=== PATIENT | female | born 1995 | race Caucasian/White ===

== ENCOUNTER 2017-06-27 22:06 | Inpatient (IN) | payer OTHER ==
[2017-06-27 22:45] LABS: BASOPHILS 0.3 % (0-2); EOSINOPHILS 7.1 % (0-7); HEMATOCRIT 36.1 % (36.0-48.0); HEMOGLOBIN 12.2 g/dL (12-16); IMMATURE GRANULOCYTES 0.3 % (0-5); LYMPHOCYTES 9.2 % (15-50); MCH 30.7 pg (26.0-34.0); MCHC 33.8 g/dL (31.0-37.0); MCV 90.9 fL (80.0-100.0); MEAN PLATELET VOLUME 10.1 fL (7.4-10.4); MONOCYTES 5.4 % (2-11); NEUTROPHILS 77.7 % (40-80); PLATELET COUNT 136 10x3/uL (130-400); RBC 3.97 10x6/uL (4.00-5.40); RDW 12.3 % (11.5-14.5)
[2017-06-27 22:46] LABS: HCG URINE NEGATIVE (NEGATIVE)
[2017-06-27 23:01] LABS: INR 1.11 (0.85-1.17); PROTIME 14.1 SECONDS (11.6-15.0)
[2017-06-27 23:02] LABS: APPEARANCE CLEAR (CLEAR); BILIRUBIN NEGATIVE (NEGATIVE); COLOR YELLOW (YELLOW); GLUCOSE NEGATIVE (NEGATIVE); KETONE SMALL mg/dL (NEGATIVE); NITRITE NEGATIVE (NEGATIVE); PROTEIN NEGATIVE (NEGATIVE); UROBILINOGEN NORMAL (NORMAL)
[2017-06-27 23:07] LABS: ALBUMIN 3.7 g/dL (3.4-5.0); ALKALINE PHOSPHATASE 49 U/L (46-116); ALT (SGPT) 46 U/L (10-68); BILIRUBIN - TOTAL 0.16 mg/dL (0.2-1.3); CALC OSMOLALITY 267 mosm/kg (275-300); CALCIUM 8.9 mg/dL (8.5-10.1); CARBON DIOXIDE 24.1 mmol/L (21.0-32.0); CHLORIDE - SERUM 102 mmol/L (98-107); CREATININE - SERUM 0.8 mg/dL (0.6-1.3); GLUCOSE 97 mg/dL (74-106); PROTEIN - SERUM 7.5 g/dL (6.4-8.2); SODIUM 134 mmol/L (136-145); UREA NITROGEN 13 mg/dL (7-18); eGFR NON AFRICAN AMERICAN > 90 mL/min (90-120)
[2017-06-27 23:09] LABS: CREATINE KINASE 80 UL (21-215)
[2017-06-27 23:10] LABS: TROPONIN-I < 0.017 ng/mL (0.000-0.060)
[2017-06-28] VITALS (7 sets, daily range): BP systolic 94–116; BP diastolic 53–80; BMI 20.9
[2017-06-28 00:02] LABS: C-REACTIVE PROTEIN 8.7 mg/dL (0.0-0.9); THYROID STIMULATING HORMONE 0.31 uIU/mL (0.36-3.74)
[2017-06-28] MEDS ORDERED: BACTRIM DS TABL1 TAB PO (02:21)
[2017-06-28] MEDS ORDERED: NAPROSYN500 MG PO (02:22)
[2017-06-28] MEDS ORDERED: ORTHO TRI-7 DAYSX 3 PO (02:23)
--- NOTE | 2017-06-28 02:57 | NUR ---
PT ARRIVED VIA W/C FROM ER AT 0154 HRS. NO DISTRESS NOTED. ST PER CM HR 102. IV TO RAC WITH NS AT 125CC/HR. IV PATENT. PT PLACED IN ILOLATION DUE TO FLU SWABS. ADMISSION ASSESSMENT, HISTORY AND HOME MED LIST COMPLETED. PRESCRIBED MEDS REVIEWED. MOTHER AT BEDSIDE. SR UP X2, CALL LIGHT WITHIN REACH.
--- NOTE | 2017-06-28 05:23 | NUR ---
PT AWAKE; DENIES ANY NEEDS AT THIS TIME.
--- NOTE | 2017-06-28 05:51 | NUR ---
PT RESTING WITH EYES CLOSED. RESP EVEN AND REGULAR. SR UP X2, CALL LIGHT WITHIN REACH AND MOTHER AT BEDSIDE.
--- NOTE | 2017-06-28 07:27 | NUR ---
AM ROUNDS - PT IN BED AT APPEARS TO BE SLEEPING AT THIS TIME. MONITOR SHOWING SR, HR 84. PT IS UP AD RAND. IV TO RIGHT AC, NS AT 125. MOM AT BEDSIDE. BED AT LOWEST POSITION. CALL JULIO IN USE/REACH. SIDE RAILS UP X2. WILL CONTINUE TO MONITOR
--- NOTE | 2017-06-28 13:26 | NUR ---
PT IN BED WITH MONTHER AT BEDSIDE. PT C/O PAIN TO CHEST, MEDS GIVEN. NO NEEDS AT [facility]. WILL CONTINUE TO MONITOR
[2017-06-28 13:58] LABS: ERYTHROCYTE SEDIMENTATION RATE 13 mm/hr (0-20)
--- NOTE | 2017-06-28 14:07 | NUR ---
PT'S MOM DISCONNECTED THE IV FLUIDS FROM THE IV AND TRIED TO RECONNECT IT. EXPLAINED TO MOM AND PT TO PLEASE ASK FOR ASSISTANCE AND ALLOW STAFF TO MANAGE MEDICAL EQUIPMENT. WILL CONTINUE TO MONITOR
--- NOTE | 2017-06-28 17:58 | HP ---
PATIENT: LASHAWN WILLIS MEDICAL RECORD: [id number] ACCOUNT: [id number] LOCATION:[address] : 95 ADMISSION DATE: 06/28/17 HISTORY AND PHYSICAL EXAMINATION HISTORY OF PRESENT ILLNESS: Ms. Willis is a 21-year-old white female, patient of ____ had [facility] that has had any 4-week history of chest pain and has been seen on multiple occasions and has been seen at the Emergency Room, has [facility] on a couple occasions, has been seen at several walking on occasions. Pain is constant, but worse when she takes a deep breath, worse when she leans forward, no association with eating, it is worse with exertion. She started having fever 3 days ago. She is on control pills. CTA in the Emergency Room was negative. She states she has been losing weight. She denies any adenopathy. She denies any real GI symptoms. She denies any HIV or other infectious history of significance. She denies any known tick bites. Does state she has spider bite behind the knee few weeks ago, but that has healed up fine. She has had some short course of prednisone, has had some Toradol shots, has been given tramadol and nothing seems to help. LABORATORY DATA: Showed a mildly low TSH. She has a mild leukopenia and mild thrombocytopenia. Her sed rate is 8.9. Urine is clean except for a small amount of ketones. Her CBC shows low lymphs and high eosinophils at 7.1, which is only mildly ____. Her liver function tests are normal. Cardiac enzymes are normal. Her flu A and B were both negative. Her test is negative. PAST MEDICAL HISTORY: Unremarkable. PREVIOUS SURGERIES: None. ALLERGIES: None. MEDICATIONS: The only medications are; she is on some Bactrim and Naprosyn right now. She has been on her regular Ortho Tri-Cyclen. FAMILY HISTORY: Significant for cardiovascular disease. SOCIAL HISTORY: Does not smoke, does not drink. Alcohol on a social basis. Denies any recreational drug use. REVIEW OF SYSTEMS: Fever for 3 days. Chest pain for 4 weeks with associated shortness of breath. No nausea, vomiting. No rashes. No lymph nodes. She has had some weight loss. PHYSICAL EXAMINATION: HEENT: Head is normocephalic. Oral cavity is okay. NECK: Soft and supple, no adenopathy. HEART: Regular. LUNGS: Clear. ABDOMEN: Soft. LOWER EXTREMITIES: No edema. NEUROLOGIC: Without any gross focal deficits. Mood is "okay." IMPRESSION: 1. Chest pain times 4 weeks. Negative CTA. 2. Fever the last 3 days, some weight loss leuco and thrombocytopenia. HISTORY AND PHYSICAL [id number] LASHAWN WILLIS PLAN: Check an echo to rule out pericarditis. Get tick titers. Check sed rate, JOSY, RA. Toradol times 4 doses. Consider ID consult pending results of above. TRANSINT:[id number] Voice Confirmation ID: [id number] DOCUMENT ID: [id number] JOSE CAPONE DO at 1758 CC: [id number] DICTATION DATE: 06/28/17 1211 HEAD CHEF: 06/28/[address] [facility] [address] [id number]
--- NOTE | 2017-06-28 19:15 | NUR ---
ROUNDING NOTE: AT THE CHANGE OF SHIFT, PT IS SITTING UP IN BED WITH MOM AT THE BEDSIDE VISITING. PT IS SINUS RHYTHM ON THE MONITOR, RATE= 81. PT HAS NS RUNNING AT 125CC/HR TO RIGHT AC. PT CONTINUES TO C/O CHEST PAIN 02/06. SHE STATES THAT THE TORADOL IS NOT REALLY HELPING VERY MUCH. I TOLD HER THAT SHE CAN ALSO GET DILAUDID, BUT SHE DOESN'T WANT TO TAKE THAT YET. HER NEXT DOSE OF DILAUDID IS DUE AT 2014, SO SHE WANTS TO SEE HOW THAT GOES. PT IS ON DROPLET PRECAUTIONS. WILL CONT TO MONITOR.
--- NOTE | 2017-06-28 22:00 | NUR ---
PT STATES THAT THE TORADOL ONLY HELPED HER A TINY BIT, BUT SHE STILL DOESN'T WANT TO TAKE THE DILAUDID. PT STATES THAT SHE WILL TELL ME IF THE PAIN GETS WORSE. WILL CONT TO MONITOR.
[2017-06-29] VITALS: BP 86/44
[2017-06-29 04:00] VITALS: BP 84/50
--- NOTE | 2017-06-29 05:23 | NUR ---
PT HAS CONTINUED TO HAVE CONSTANT CP THROUGHOUT THE NIGHT. SHE HAS RECEIVED HER SCHEDULED TORADOL [id number] AND 2 DOSES OF PRN DILAUDID TO HELP HER SLEEP. PT STATES THAT THE TORADOL DOESN'T SEEM TO HELP HER AT ALL. THE DILAUDID HELPS A BIT MORE, BUT IT JUST KNOCKS HER OUT. PT HAS BEEN ABLE TO GET SOME SLEEP WITH THE DILAUDID. WILL CONT TO MONITOR.
[2017-06-29 05:59] LABS: BASOPHILS 0.5 % (0-2); EOSINOPHILS 6.5 % (0-7); HEMATOCRIT 34.2 % (36.0-48.0); HEMOGLOBIN 11.1 g/dL (12-16); LYMPHOCYTES 34.5 % (15-50); MCH 30.2 pg (26.0-34.0); MCHC 32.5 g/dL (31.0-37.0); MEAN PLATELET VOLUME 10.7 fL (7.4-10.4); NEUTROPHILS 51.5 % (40-80); PLATELET COUNT 132 10x3/uL (130-400); RBC 3.67 10x6/uL (4.00-5.40); RDW 12.8 % (11.5-14.5)
[2017-06-29 06:12] LABS: MCV 93.2 fL (80.0-100.0); WBC 3.8 10x3/uL (4.8-10.8)
[2017-06-29 06:22] LABS: ALBUMIN 2.8 g/dL (3.4-5.0); ALKALINE PHOSPHATASE 42 U/L (46-116); ALT (SGPT) 43 U/L (10-68); CALCIUM 8.3 mg/dL (8.5-10.1); CARBON DIOXIDE 23.6 mmol/L (21.0-32.0); CHLORIDE - SERUM 107 mmol/L (98-107); CREATININE - SERUM 0.6 mg/dL (0.6-1.3); GLUCOSE 89 mg/dL (74-106); POTASSIUM - SERUM 4.1 mmol/L (3.5-5.1); PROTEIN - SERUM 6.2 g/dL (6.4-8.2); SODIUM 140 mmol/L (136-145); eGFR NON AFRICAN AMERICAN > 90 mL/min (90-120)
[2017-06-29 06:23] LABS: BILIRUBIN - TOTAL 0.08 mg/dL (0.2-1.3); CALC OSMOLALITY 275 mosm/kg (275-300); UREA NITROGEN 7 mg/dL (7-18)
[2017-06-29 08:19] LABS: T3 - FREE 2.2 pg/mL (2.0-4.4)
[2017-06-29 08:35] VITALS: BP 84/48
--- NOTE | 2017-06-29 09:11 | NUR ---
PT IN BED, WITH EYES CLOSED, AROUSES EASILY TO VOICE. RESP EVEN AND UNLABORED. PT DENIES ANY NEEDS AT THIS TIME. MOTHER AT BEDSIDE, CALL LIGHT IN REACH, NAD NOTED, WILL CONTINUE TO MONITOR.
[2017-06-29 10:18] LABS: ANA REFLEX - DIRECT Negative (Negative)
[2017-06-29 11:16] LABS: HEPATITIS C ANTIBODY 0.2 (0.0-0.9)
[2017-06-29 12:02] VITALS: BP 112/71
--- NOTE | 2017-06-29 14:58 | NUR ---
ADMINISTERED 0.5MG OF DILAUDID FOR PAIN LEVEL OF 8/10. PT IN BED, HAVING CONVERSATION WITH COMPANY. PT DENIES ANY OTHER NEEDS AT THIS TIME. CALL LIGHT IN REACH, NAD NOTED, WILL CONTINUE TO MONITOR.
[2017-06-29] MEDS ORDERED: DOXYCYCLINE HY100 M2 PO (16:11)
[2017-06-29] MEDS ORDERED: PREDNISONE10 MG PO (16:33)
--- NOTE | 2017-06-29 16:42 | EC ---
PATIENT:LASHAWN MARTÍNEZ DATE OF SERVICE: 06/28/17 SEX: F MEDICAL RECORD: [id number] DATE OF : [birth year] LOCATION:D.M2 D.210 AGE OF PATIENT: 21 ADMISSION DATE: 06/28/17 REFERRING PHYSICIAN: INTERPRETING PHYSICIAN: FUNMILAYO NDIAYE MD ECHOCARDIOGRAM REPORT ECHO CHARGES 4 ECHO COMPLETE CLINICAL DIAGNOSIS: CP/FEVER ECHOCARDIOGRAPHIC MEASUREMENTS (adult normal given) AC root (d.<3.7cm) 2.3 cm LV Septum d (<1.2 cm> 0.9 cm Valve Excursion 1.6 cm LV Septum (systole) 1.4 cm Left Atria (s.<4.0cm> 2.2 cm LVPW d(<1.2cm) 0.8 cm RV (d.<2.3cm) cm LVPW (sytole) 1.4 cm LV diastole(<5.6CM) 3.9 cm MV E-F(>70mm/sec) cm LV systole 2.0 cm LVOT Diameter 1.4 cm MV exc.(>10mm) cm Est.ejection fraction (50-75%) % Pericardial Effusion N DOPPLER: LVIT cm/sec A 59.0 cm/sec E 86.0 cm/sec LA cm/sec RVSP 26.0 mmHg LVOT 93.0 cm/sec AOP1/2T m/s Asc. Ao 115 cm/sec RVOT 83.0 cm/sec RA cm/sec PA 88.0 cm/sec AV Gradient Peak 5.3 mmHg AV Mean 2.3 mmHg AV Area 1.1 cm MV Gradient Peak 3.6 mmHg MV Mean 1.4 mmHg MV Area cm COMMENTS: Government Minister: Anthony GODFREYOE Judge'S Clerk: Magen Hartley TAPE# PACS DATE OF SERVICE: 06/28/2017 Echocardiogram FINDINGS: 1. Left ventricular chamber size is within normal limits. Left ventricular systolic function is normal. Overall ejection fraction estimated at 55%. 2. Left atrium, right atrium, and right ventricle chamber sizes are within normal limits. 3. Valvular structures have normal structure and motion. ECHOCARDIOGRAM REPORT [id number] LASHAWN MARTÍNEZ 4. Doppler interrogation only reveals trace mitral regurgitation, trace tricuspid regurgitation, neither of which are hemodynamically significant and pulmonary systolic pressure is normal estimated at 26 mmHg. 5. No evidence of pericardial effusion or left ventricular thrombus. TRANSINT:[id number] Voice Confirmation ID: [id number] DOCUMENT ID: [id number] FUNMILAYO NDIAYE MD at 1642 CC: [id number] DICTATION DATE: 06/29/17 103 INPATIENT PHARMACIST: 06/29/17 1101 ADM IN [facility] [address] [place] [address]
--- NOTE | 2017-06-29 17:52 | NUR ---
PROVIDED VERBAL AND WRITTEN DISCHARGE TEACHING TO PT. PT VERBALIZED UNDERSTANDING REGARDING TEACHING. D/C RT AC IV, TIP INTACT. REMOVED HEART MONITOR AND TOOK IT TO [facility]. PT WAITING FOR RIDE, WILL NOTIFY NURSE OR LOADING UNIT OPERATOR SEATING WHEN RIDE IS HERE. PT DENIES ANY NEEDS AT THIS TIME. CALL LIGHT IN REACH, NAD NOTED, WILL CONTINUE TO MONITOR.
[2017-06-29 18:09] LABS: EBV - EARLY ANTIGEN AB IGG <9.0 U/mL (0.0-8.9)
--- NOTE | 2017-06-29 18:15 | NUR ---
PT LEFT UNIT VIA WHEELCHAIR, ACCOMPANIED BY FATHER AND FRIEND, NAD NOTED.
--- NOTE | 2017-06-30 09:53 | DS ---
PATIENT:LASHAWN MARTÍNEZ :89 MEDICAL RECORD: [id number] DISCHARGE SUMMARY ADMISSION DATE: 06/28/17 DISCHARGE DATE: 06/29/17 DATE OF ADMISSION: 06/28/2017 DATE OF DISCHARGE: 06/29/2017 ADMITTING DIAGNOSES: 1. Chest pain. 2. Fever for 24 hours. DISCHARGE DIAGNOSES: 1. Chest wall pain. 2. Fever, resolved. 3. Mild thrombocytopenia and leukopenia. 4. Mildly abnormal TSH. BRIEF HISTORY AND HOSPITAL COURSE: This is a 21-year-old white female that presents to the Emergency Room with a 4-week history of chest pain. She has been seen on multiple occasions in the Emergency Room at [facility] and at [facility], at her physician, Dr. Ge at [facility]. She has been treated with some NSAIDs and some steroids. The pain is worse when she takes a deep breath and worse when she leans forward. No association with eating. It is worse with exertion. She started having fever 3 days ago. She is on control pills. A CTA was performed in the Emergency Room, which was negative for pulmonary embolism. She is losing weight a little bit. She denies any adenopathy. She denies any real GI symptoms. No HIV risk factors. No recent tick bites. She had a spider bite behind the left knee a few weeks ago, but that has healed up. On her labs, she had mild depression of her TSH with normal free T3 and T4. Her white count is 3.8, H&H is 11.1 and 32.4, and platelets are 132 with slight predominance of eosinophils. Sed rate was normal at 13. INR was 1.11. Electrolytes were all normal. Liver function tests were normal. Urine showed small amount of ketones. Rheumatoid factor was negative. JOSY is still pending. Tick titers are still pending. Hepatitis panel was negative. CRP was little high at 8.7. On physical exam, she is exquisitely tender in the anterior chest wall and some in the back. There is no rash seen. Her EKG is normal without signs of pericarditis. An echo was performed, which revealed no evidence of any pleural or pericardial effusion or thrombus. She was given 4 doses of Toradol, which did not make any difference with her pain really, which is still present at the time of discharge. We are going to go ahead and treat her empirically with some doxycycline 100 mg b.i.d. until her tick titers come back. She was also placed on a 12-day prednisone taper. She is instructed to follow up with Dr. Ge, her primary care physician, in 10 days and will need to follow up on tick titers and JOSY. Clinically, she has a pretty severe costochondritis. Her workup has otherwise been negative. TRANSINT:[id number] Voice Confirmation ID: [id number] DOCUMENT ID: [id number] DISCHARGE SUMMARY REPORT [id number] LASHAWN MARTÍNEZ MATTHEW DO at 0953 CC: [id number] DICTATION DATE: 06/29/171726 DIE FINISHER: 06/29/171954 DIS IN 06/29/17 [address] [place] [address]
[2017-06-30 14:30] LABS: EHRLICHIA CHAFF IGG Negative (Neg:<1:64); EHRLICHIA CHAFF IGM Negative (Neg:<1:20); HGE IGG TITER Negative (Neg:<1:64); HGE IGM TITER Negative (Neg:<1:20)
[2017-06-30 22:08] LABS: RMSF IGM 0.88 index (0.00-0.89)
[2017-07-01 12:16] LABS: F. TULARENSIS - IGG Negative (()); F. TULARENSIS - IGM Negative (())
== END 2017-06-29 18:16 | disposition home or self-care (01) | DRG 206 ==
LOC: D.ER 22:06 → EDSEX 22:06 → OBSVTIME 06-28 01:20 → D.M2 06-28 01:20
PROVIDERS: Family Medicine; Nurse Practitioner Family; ADMIT Family Medicine
DX: M94.0 Chondrocostal junction syndrome [Tietze] (principal); R50.9 Fever, unspecified; D72.819 Decreased white blood cell count, unspecified; I08.1 Rheumatic disorders of both mitral and tricuspid valves; D69.6 Thrombocytopenia, unspecified

== ENCOUNTER 2017-07-09 00:11 | Inpatient (IN) | payer OTHER ==
[~2017-07-09] VITALS: Ht 157.5 cm; Wt 52.2 kg
[~2017-07-09 00:11] MED LIST: BACTRIM DS TABL1 TAB PO; DOXYCYCLINE HY100 M2 PO; NAPROSYN500 MG PO; ORTHO TRI-7 DAYSX 3 PO; PREDNISONE10 MG PO
[2017-07-09 00:41] LABS: BASOPHILS 0.1 % (0-2); EOSINOPHILS 0.2 % (0-7); HEMATOCRIT 42.3 % (36.0-48.0); HEMOGLOBIN 14.1 g/dL (12-16); IMMATURE GRANULOCYTES 0.5 % (0-5); MCH 30.3 pg (26.0-34.0); MCHC 33.3 g/dL (31.0-37.0); MCV 90.8 fL (80.0-100.0); MEAN PLATELET VOLUME 9.4 fL (7.4-10.4); NEUTROPHILS 92.2 % (40-80); RBC 4.66 10x6/uL (4.00-5.40); RDW 12.5 % (11.5-14.5); WBC 18.1 10x3/uL (4.8-10.8)
[2017-07-09 00:46] LABS: PLATELET COUNT 379 10x3/uL (130-400)
[2017-07-09 00:59] LABS: ANION GAP 12.6 mmol/L (8-16); BILIRUBIN - TOTAL 0.43 mg/dL (0.2-1.3); CALCIUM 9.5 mg/dL (8.5-10.1); CREATININE - SERUM 1.5 mg/dL (0.6-1.3); POTASSIUM - SERUM 3.6 mmol/L (3.5-5.1); PROTEIN - SERUM 7.9 g/dL (6.4-8.2)
[2017-07-09 01:08] LABS: T4 THYROXIN - FREE 1.51 ng/dL (0.76-1.46); T4 THYROXINE 17.6 ug/dL (4.7-13.3)
[2017-07-09 01:24] LABS: APPEARANCE CLOUDY (CLEAR); COLOR DK YELLOW (YELLOW)
[2017-07-09 01:25] LABS: BACTERIA MANY /hpf (NONE SEEN); BILIRUBIN 1+ (NEGATIVE); GLUCOSE NEGATIVE (NEGATIVE); KETONE NEGATIVE (NEGATIVE); NITRITE NEGATIVE (NEGATIVE); PROTEIN 1+ mg/dL (NEGATIVE); RED CELLS - URINE 0-5 /hpf (0-5); UROBILINOGEN NORMAL (NORMAL); WHITE CELLS - URINE >50 /hpf (0-5)
--- NOTE | 2017-07-09 03:20 | NUR ---
PT ARRIVED VIA WHEELCHAIR FROM ER WITH ER NURSE AND PT'S MOTHER AT HER SIDE. ORIENTED TO ROOM AND CALL LIGHT. WILL MONITOR FOR NEEDS.
[2017-07-09] MEDS ORDERED: BACTRIM DS TABL1 TAB PO (03:24)
[2017-07-09] MEDS ORDERED: VISTARIL25 MG PO (03:25)
[2017-07-09 03:26] VITALS: BP 94/47; BMI 21.0
--- NOTE | 2017-07-09 03:40 | NUR ---
ADMISSION ASSESSMENT AND HISTORY COMPLETE PER FLOWSHEET.
[2017-07-09 04:00] VITALS: BP 94/47
--- NOTE | 2017-07-09 06:06 | NUR ---
GAVE DILAUDID 1 MG IVP PER PRN ORDER, PER PT REQUEST FOR PAIN AT LEVEL 9/10. WILL MONITOR FOR EFFECTIVENESS. SIDE RAILS UP X2 FOR SAFETY.
--- NOTE | 2017-07-09 07:15 | NUR ---
REPORT RECEIVED FROM CHEF TEACHER NURSE. CALL LIGHT IN REACH.
[2017-07-09 08:23] VITALS: BP 84/41
--- NOTE | 2017-07-09 09:36 | NUR ---
ASSESSMENT COMPLETED. SPOKE WITH DALTON MATA, ABOUT VS. NEW ORDERS OBTAINED AND CARRIED OUT. WILL ALSO INITIATED DILAUDID REGIONAL SALES ASSOCIATE. PHENERGAN ADMINISTERED IM TO LEFT BUTTOCKS FOR C/O NAUSEA. MOTHER IN ROOM. CALL LIGHT IN REACH. WILL CONTINUE WITH PLAN OF CARE.
--- NOTE | 2017-07-09 10:28 | NUR ---
1ST NS BOLUS IS COMPLETED.
[2017-07-09 10:46] VITALS: Ht 157.5 cm; Wt 52.2 kg
--- NOTE | 2017-07-09 11:07 | NUR ---
UPPER LIP IS STARTING TO SWELL, PATIENT'S FACE IS FLUSHED AND SHE IS STARTING TO ITCH. PHENERGAN IS THE ONLY NEW THING SHE HAS TAKEN. SPOKE WITH DALTON MATA. NEW ORDER FOR BENADRYL 25 MG PO WHICH I ADMINISTERED. ALSO STARTED 2NS 1000 CC NS IV BOLUS. DILAUDID BOOKSTORE CLERK INITIATED PER ORDER. MOTHER AT BEDSIDE. CALL LIGHT IN REACH.
--- NOTE | 2017-07-09 12:26 | NUR ---
STILL VERY NAUSEATED. ZOFRAN 4 MG SIVP. 2ND IV BOLUS IS COMPLETED. PASSWORD OBTAINED AND PLACED IN COMPUTER. CALL LIGHT IN REACH. WILL CONTINUE TO MONITOR.
[2017-07-09 12:34] VITALS: BP 90/47
--- NOTE | 2017-07-09 14:10 | NUR ---
RESTING WITH EYES CLOSED. RESP EVEN AND UNLABORED. CALL LIGHT IN REACH.
--- NOTE | 2017-07-09 15:45 | NUR ---
SITTING UP IN BED AT THIS TIME. REPORTS PAIN CONTROL NOT WORKING WELL, PAIN NOT IMPROVED BUT NO WORSE EITHER. WILL MONITOR. WAITING ON CT AT THIS TIME. DENIES NEEDS.
[2017-07-09 16:29] VITALS: BP 102/50
--- NOTE | 2017-07-09 16:43 | NUR ---
C/O ITCHING. PATIENT'S BODY IS FLUSHED ALL OVER AND LIP IS STILL SWOLLEN. UNSURE OF WHICH MED IS CAUSING REACTION. SPOKE WITH DALTON MATA. NEW ORDERS RECEIVED FOR IV BENADRYL, ROCEPHIN 1 GM IVPB, AND 500 CC NS IV BOLUS. ALSO NEW ORDER TO DC LEVAQUIN.
--- NOTE | 2017-07-09 16:52 | NUR ---
DR. SALAMANCA JUST CALLED AND GAVE NEW ORDERS TO DC AUDIT CONSULTANT AND START ON DEMEROL 50 MG Q4 HOURS PRN PAIN. ALSO ORDERED PHENERGAN BUT PATIENT WILL BE UNABLE TO TAKE D/T REACTION EARLIER.
--- NOTE | 2017-07-09 17:33 | NUR ---
NEW ORDERS ADMINISTERED PER MD ORDERS. CALL LIGHT IN REACH. MOTHER AT BEDSIDE.
--- NOTE | 2017-07-09 19:28 | NUR ---
NO CHANGES IN INITIAL ASSESSMENT. CALL LIGHT IN REACH. SCDs TO BLE. WILL CONTINUE WITH PLAN OF CARE.
[2017-07-09 20:00] VITALS: BP 106/49
[2017-07-10] VITALS: BP 105/55
[2017-07-10 04:00] VITALS: BP 89/49
[2017-07-10 05:56] LABS: BASOPHILS 0 % (0-2); HEMATOCRIT 33.7 % (36.0-48.0); IMMATURE GRANULOCYTES 0.1 % (0-5); LYMPHOCYTES 25.3 % (15-50); MCH 30.1 pg (26.0-34.0); MCHC 32.6 g/dL (31.0-37.0); MCV 92.1 fL (80.0-100.0); MEAN PLATELET VOLUME 9.6 fL (7.4-10.4); MONOCYTES 3.8 % (2-11); NEUTROPHILS 66.8 % (40-80); PLATELET COUNT 241 10x3/uL (130-400); RBC 3.66 10x6/uL (4.00-5.40); RDW 12.9 % (11.5-14.5); WBC 7.3 10x3/uL (4.8-10.8)
[2017-07-10 06:17] LABS: ALKALINE PHOSPHATASE 35 U/L (46-116); ALT (SGPT) 23 U/L (10-68); BILIRUBIN - TOTAL 0.25 mg/dL (0.2-1.3); CALCIUM 7.9 mg/dL (8.5-10.1); CHLORIDE - SERUM 107 mmol/L (98-107); GLUCOSE 100 mg/dL (74-106); POTASSIUM - SERUM 3.7 mmol/L (3.5-5.1); SODIUM 139 mmol/L (136-145)
[2017-07-10 06:23] LABS: ALBUMIN 2.5 g/dL (3.4-5.0); CALC OSMOLALITY 274 mosm/kg (275-300); CARBON DIOXIDE 19.7 mmol/L (21.0-32.0); CREATININE - SERUM 0.8 mg/dL (0.6-1.3); PROTEIN - SERUM 5.6 g/dL (6.4-8.2); UREA NITROGEN 5 mg/dL (7-18); eGFR NON AFRICAN AMERICAN > 90 mL/min (90-120)
--- NOTE | 2017-07-10 08:00 | NUR ---
ASSESSMENT PER FLOW SHEET. PT WITHOUT DISTRESS.PT HAS BEEN COMPLAINING OF CONSTANT SHARP CHEST PAIN 5/10 SCALE. ORDERS RECIEVED PER AND INITIATED.
[2017-07-10 08:34] LABS: HCG SERUM NEGATIVE (NEGATIVE)
[2017-07-10 08:40] VITALS: BP 101/50
--- NOTE | 2017-07-10 13:40 | NUR ---
IN AND OUT CATH USING CAFE OR RESTAURANT MANAGER.URINE TO LAB FOR CX ORDERED.
[2017-07-10 15:44] VITALS: BP 105/60
--- NOTE | 2017-07-10 18:10 | NUR ---
REMAINS WITHOUT CHNAGE FROM INITIAL SHIFT ASSESSMENT.CONT PLAN OF CARE
--- NOTE | 2017-07-10 19:45 | NUR ---
PATIENT RESTING IN BED WITH GUEST AT BEDSIDE. ADMINISTERED MEDS PER ORDERS. PT C/O IV BURNING. I ASSESSED AND FLUSHED THE PT'S IV. NO REDNESS/SWELLING NOTED. PT STATED IT "FELT BETTER" AFTER I FLUSHED IT. WILL CONTINUE TO MONITOR. PT DENIES OTHER NEEDS AT THIS TIME. BED IN LOWEST POSITION AND CALL LIGHT WITHIN REACH. ENCOURAGED THE PT TO CALL IF SHE HAS NEEDS.
[2017-07-10 20:00] VITALS: BP 115/70
[2017-07-11] VITALS: BP 103/60
[2017-07-11 04:00] VITALS: BP 93/43
[2017-07-11 05:26] LABS: BASOPHILS 0.1 % (0-2); EOSINOPHILS 3.2 % (0-7); HEMATOCRIT 34.8 % (36.0-48.0); HEMOGLOBIN 11.7 g/dL (12-16); IMMATURE GRANULOCYTES 0.3 % (0-5); MCH 30.3 pg (26.0-34.0); MCHC 33.6 g/dL (31.0-37.0); MCV 90.2 fL (80.0-100.0); MEAN PLATELET VOLUME 9.4 fL (7.4-10.4); MONOCYTES 3.8 % (2-11); NEUTROPHILS 73.6 % (40-80); PLATELET COUNT 219 10x3/uL (130-400); RBC 3.86 10x6/uL (4.00-5.40); RDW 12.6 % (11.5-14.5); WBC 6.9 10x3/uL (4.8-10.8)
[2017-07-11 06:00] LABS: ALBUMIN 2.7 g/dL (3.4-5.0); ALKALINE PHOSPHATASE 36 U/L (46-116); ALT (SGPT) 31 U/L (10-68); BILIRUBIN - TOTAL 0.21 mg/dL (0.2-1.3); CALC OSMOLALITY 275 mosm/kg (275-300); CALCIUM 8.3 mg/dL (8.5-10.1); CHLORIDE - SERUM 106 mmol/L (98-107); CREATININE - SERUM 0.8 mg/dL (0.6-1.3); GLUCOSE 95 mg/dL (74-106); POTASSIUM - SERUM 3.7 mmol/L (3.5-5.1); PROTEIN - SERUM 5.7 g/dL (6.4-8.2); SODIUM 140 mmol/L (136-145); UREA NITROGEN 4 mg/dL (7-18); eGFR NON AFRICAN AMERICAN > 90 mL/min (90-120)
--- NOTE | 2017-07-11 08:00 | NUR ---
ASSESSMENT PER FLOW SHEET.PT WITHOUT DISTRESS.DENIES NEEDS AT PRESENT.CALL LIGHT IN REACH
[2017-07-11 08:33] VITALS: BP 95/55
[2017-07-11] MEDS ORDERED: MEPERIDINE HCL50 MG PO (11:08)
--- NOTE | 2017-07-11 12:17 | NUR ---
IV DCD WITH CATH TIP INTACT.DISCHARGE INSTRUCTIONS,STATES UNDERSTANDING.
--- NOTE | 2017-07-11 12:43 | NUR ---
LEFT UNIT VIA WHEELCHAIR FOR TRANSPORT HOME
--- NOTE | 2017-09-23 10:20 | DS ---
PATIENT:LASHAWN MARTÍNEZ :89 MEDICAL RECORD: [id number] DISCHARGE SUMMARY ADMISSION DATE: 07/09/17 DISCHARGE DATE: 07/11/17 This is a discharge from the inpatient hospital dated 07/11/2017. DISCHARGE DIAGNOSES: 1. Pyelonephritis. 2. Thrombocytopenia. 3. Leukopenia. 4. Hypotension. 5. Fever. 6. Chest pain. HOSPITAL COURSE: Full H&P is located elsewhere on the chart on this 21-year-old female who was admitted for treatment of pyelonephritis. She was started on Levaquin for antibiotic coverage and had a rash developed. Antibiotics were changed to Rocephin. She had a chest x-ray with no acute findings. CT abdomen and pelvis without acute findings. She came in with chest pain, her D-dimer was slightly elevated, so V/Q scan was ordered, it was consistent with low probability for PE. She had blood cultures that were negative. Her urinalysis was consistent with infection, but cultures revealed consistent with a contaminated specimen. Her condition improved and she was considered stable for discharge on 07/11/2017. DISCHARGE MEDICATIONS: As per discharge medication reconciliation. DISCHARGE DISPOSITION: The patient is discharged home. She will continue her current diet and level of activity. She will follow up with primary care in 7-10 days. She will complete 7 days of Bactrim. At least 30 minutes was spent in this discharge activity. TRANSINT:[id number] Voice Confirmation ID: [id number] DOCUMENT ID: [id number] Dictated By: KATERINA ESCAMILLA I have interviewed/examined the above patient and agree with these documented findings. PILI SALAMANCA MD at 1020 at 1023 CC: [id number] DICTATION DATE: 09/19/17 1806 OPAL MINER: 09/20/17 1106 DIS IN 07/11/17 [facility] [address] [place] [address]
== END 2017-07-11 12:44 | disposition home or self-care (01) | DRG 690 ==
LOC: D.ER 00:11 → D.MS 02:31
PROVIDERS: Emergency Medicine; Family Medicine; ADMIT Emergency Medicine
DX: N12 Tubulo-interstitial nephritis, not specified as acute or chronic (principal); R07.9 Chest pain, unspecified; D69.6 Thrombocytopenia, unspecified; R00.0 Tachycardia, unspecified; I95.9 Hypotension, unspecified; L27.0 Generalized skin eruption due to drugs and medicaments taken internally; T36.8X5A Adverse effect of other systemic antibiotics, initial encounter

== ENCOUNTER 2018-06-24 14:58 | Emergency (ER) | payer BC ==
[~2018-06-24] VITALS: Ht 157.5 cm; Wt 52.3 kg
[~2018-06-24 14:58] MED LIST changes: +MEPERIDINE HCL50 MG PO; +VISTARIL25 MG PO
[2018-06-24 15:00] VITALS: Ht 157.5 cm; Wt 52.3 kg
[2018-06-24] MEDS ORDERED: NORCO 7.5/325 T1 TA1 PO (16:23)
[2018-06-24 16:45] VITALS: BP 102/56
== END 2018-06-24 16:45 | disposition home or self-care (01) ==
LOC: D.ER 14:58
DX: S80.02XA Contusion of left knee, initial encounter (principal); V49.9XXA Car occupant (driver) (passenger) injured in unspecified traffic accident, initial encounter; Y93.89 Activity, other specified; Y92.410 Unspecified street and highway as the place of occurrence of the external cause; S93.401A Sprain of unspecified ligament of right ankle, initial encounter

== ENCOUNTER 2020-04-12 11:47 | Emergency (ER) | payer BC ==
[~2020-04-12] VITALS: Ht 157.5 cm; Wt 53.2 kg
[~2020-04-12 11:47] MED LIST changes: +NORCO 7.5/325 T1 TA1 PO
[2020-04-12 12:01] VITALS: Ht 157.5 cm; Wt 53.2 kg
[2020-04-12 12:26] LABS: BASOPHILS 0.3 % (0-2); EOSINOPHILS 1.2 % (0-7); HEMATOCRIT 41.9 % (36.0-48.0); HEMOGLOBIN 13.8 g/dL (12-16); IMMATURE GRANULOCYTES 0.2 % (0-5); LYMPHOCYTES 29.7 % (15-50); MCHC 32.9 g/dL (31.0-37.0); MCV 94.2 fL (80.0-100.0); MEAN PLATELET VOLUME 9.5 fL (7.4-10.4); NEUTROPHILS 60.6 % (40-80); RBC 4.45 10x6/uL (4.00-5.40); RDW 12.2 % (11.5-14.5); WBC 5.7 10x3/uL (4.8-10.8)
[2020-04-12 12:30] LABS: PLATELET COUNT 265 10x3/uL (130-400)
[2020-04-12 12:43] LABS: CALC OSMOLALITY 273 mosm/kg (275-300); CALCIUM 9.9 mg/dL (8.5-10.1); CARBON DIOXIDE 31.3 mmol/L (21.0-32.0); CHLORIDE - SERUM 100 mmol/L (98-107); CREATININE - SERUM 0.9 mg/dL (0.6-1.3); GLUCOSE 115 mg/dL (74-106); SODIUM 136 mmol/L (136-145); UREA NITROGEN 16 mg/dL (7-18); eGFR NON AFRICAN AMERICAN 81 mL/min (90-120)
[2020-04-12 12:49] LABS: HCG SERUM NEGATIVE (NEGATIVE)
[2020-04-12 13:01] LABS: ALBUMIN 4.2 g/dL (3.4-5.0); ALKALINE PHOSPHATASE 64 U/L (30-120); ALT (SGPT) 32 U/L (10-68); BILIRUBIN - TOTAL 0.17 mg/dL (0.2-1.3); CKMB 1.1 U/L (0.0-3.6); CREATINE KINASE 168 UL (21-215); MAGNESIUM - SERUM 1.8 mg/dL (1.8-2.4); PROTEIN - SERUM 8.5 g/dL (6.4-8.2); TROPONIN-I < 0.017 ng/mL (0.000-0.060)
[2020-04-12 13:15] LABS: C-REACTIVE PROTEIN < 0.2 mg/dL (0.0-0.9)
[2020-04-12 14:17] VITALS: BP 98/65
== END 2020-04-12 14:20 | disposition home or self-care (01) ==
LOC: D.ER 11:47
PROVIDERS: Family Medicine
DX: R00.2 Palpitations (principal); R53.81 Other malaise; R07.9 Chest pain, unspecified

== ENCOUNTER 2020-04-26 11:50 | Emergency (ER) | payer BC ==
[~2020-04-26] VITALS: Ht 157.5 cm; Wt 52.3 kg
[2020-04-26 12:03] VITALS: Ht 157.5 cm; Wt 52.3 kg
[2020-04-26] MEDS ORDERED: LIORESAL 10 MG10 MG PO (13:43)
[2020-04-26] MEDS ORDERED: ULTRAM50 MG PO (13:43)
[2020-04-26 14:07] VITALS: BP 112/68
== END 2020-04-26 14:07 | disposition home or self-care (01) ==
LOC: D.ER 11:50
DX: S39.012A Strain of muscle, fascia and tendon of lower back, initial encounter (principal); S20.219A Contusion of unspecified front wall of thorax, initial encounter; S80.01XA Contusion of right knee, initial encounter; V89.2XXA Person injured in unspecified motor-vehicle accident, traffic, initial encounter; M79.604 Pain in right leg

== ENCOUNTER → 2020-06-19 10:12 | Outpatient (CLI) | payer BC ==
[2020-04-26 12:03] VITALS: BMI 21.0
[~2020-06-19 10:12] MED LIST changes: +LIORESAL 10 MG10 MG PO; +ULTRAM50 MG PO
== END | disposition home or self-care (01) ==
LOC: D.US 10:12
PROVIDERS: ATTEND Family Medicine
DX: N63.11 Unspecified lump in the right breast, upper outer quadrant (principal)

== ENCOUNTER → 2020-10-28 14:10 | Outpatient (CLI) | payer BC ==
[2020-04-26 12:03] VITALS: BMI 21.0
--- NOTE | 2020-10-28 15:50 | NUR ---
TIMEOUT PERFORMED AT 1530 USING NAME AND . NO ALLERGIES. 12CC'S ISOVUE/NS/GADOLINIUM
== END | disposition home or self-care (01) ==
LOC: D.RAD 14:00
PROVIDERS: ATTEND Orthopaedic Surgery
DX: S43.431A Superior glenoid labrum lesion of right shoulder, initial encounter (principal)

== ENCOUNTER → 2020-11-21 14:49 | Outpatient (CLI) | payer BC ==
[2020-04-26 12:03] VITALS: BMI 21.0
== END | disposition home or self-care (01) ==
LOC: D.LAB 14:49
PROVIDERS: ATTEND Internal Medicine Pulmonary Disease
DX: E88.01 Alpha-1-antitrypsin deficiency (principal)